=== PATIENT | female | born 1970 | race African-American/Black ===

== ENCOUNTER 2022-08-17 18:13 | Emergency (ER) | payer SELFPAY ==
[~2022-08-17] VITALS: Ht 167.6 cm; Wt 63.0 kg
[2022-08-17] MEDS ORDERED: OXYCODONE HCL/ACETAMINOPHEN 5/325MG TABLET PO ONE (20:00)
[2022-08-17 20:35] VITALS: BP 130/70
== END 2022-08-18 00:11 | disposition home or self-care (01) ==
LOC: ER 18:13
DX: S51.811A Laceration without foreign body of right forearm, initial encounter (principal); M79.601 Pain in right arm; W01.0XXA Fall on same level from slipping, tripping and stumbling without subsequent striking against object, initial encounter; Y93.89 Activity, other specified; Y92.89 Other specified places as the place of occurrence of the external cause; Y99.8 Other external cause status
CPT/HCPCS: 12001; 70450; 73090; 99284; Z7610